=== PATIENT | female | born 1930 | race Caucasian/White ===

== ENCOUNTER → 2016-10-28 | Outpatient (CLI) | payer OTHER ==
[2016-10-28 14:01] LABS: ALT/SGPT 35 U/L (12-78); AST/SGOT 24 U/L (15-37); BLOOD UREA NITROGEN 19 mg/dl (7-18); BUN/CREATININE RATIO 21.5 (10-20); CALCIUM 8.8 mg/dl (8.5-10.1); CARBON DIOXIDE 31 mmol/L (21-32); CHLORIDE 109 mmol/L (98-107); CHOLESTEROL 171 mg/dl (0-200); CHOLESTEROL/HDL RATIO 2.6; CREATININE 0.89 mg/dl (0.60-1.20); GLUCOSE 90 mg/dl (70-99); HDL CHOLESTEROL 65 mg/dl; LDL CHOLESTEROL CALCULATED 86 mg/dl; POTASSIUM 4.3 mmol/L (3.5-5.1); SODIUM 142 mmol/L (136-145); TRIGLYCERIDES 102 mg/dl (0-150); VERY LOW DENSITY LIPOPROT CALC 20 mg/dl
== END | disposition home or self-care (01) ==
LOC: C.LABMFLN 08:15
PROVIDERS: ATTEND Family Medicine
DX: E78.00 Pure hypercholesterolemia, unspecified (principal); I10 Essential (primary) hypertension; M81.0 Age-related osteoporosis without current pathological fracture

== ENCOUNTER → 2017-04-25 | Outpatient (CLI) | payer OTHER ==
[2017-04-25 18:05] LABS: BASO % 0.3 %; BASO ABS # 0.02 K/uL (0-0.2); EOS % 1.7 %; HEMATOCRIT 40.6 % (37-47); HEMOGLOBIN 13.3 g/dL (12.0-16.0); IG# 0.01 K/uL (0.00-0.02); LYMPH % 31.4 %; LYMPH ABS # 1.83 K/uL (1.2-3.4); MEAN CELL VOLUME 94.6 fL (80-100); MEAN CORPUSCULAR HGB CONC 32.8 g/dl (32-36); MEAN PLATELET VOLUME 12.4 fL (7.4-10.4); MONO % 8.9 %; MONO ABS # 0.52 K/uL (0.11-0.59); NEUT % 57.5 %; NEUT ABS # 3.34 K/uL (1.4-6.5); PLATELET COUNT 176 K/uL (130-400); RED CELL DISTRIBUTION WIDTH CV 13.4 % (11.5-14.5); RED CELL DISTRIBUTION WIDTH SD 45.9 fL (36.4-46.3); WHITE BLOOD COUNT 5.82 K/uL (4.8-10.8)
== END | disposition home or self-care (01) ==
LOC: C.LABMFLN 11:01
PROVIDERS: ATTEND Family Medicine
DX: R06.09 Other forms of dyspnea (principal)

== ENCOUNTER → 2017-06-06 | Outpatient (CLI) | payer OTHER ==
--- NOTE | 2017-06-06 15:11 | EXERCISE STRESS ECHO ---
*NOTICE TO RECEIVING DEMOCRAT AGENCY This information is strictly Confidential and protected under [place] law. [place] law prohibits you from making any further disclosure of this information unless further disclosure is expressly permitted by the written consent of the person to whom it pertains or is authorized by law. A general authorization for the release of medical or other information is not sufficient for this purpose. Hospital accepts no responsibility if the information is made available to any other person, INCLUDING THE PATIENT. Interpretation Summary * Name: LUCAS ALVARADO Study Date: 06/06/2017 09:40 AM BP: 134/76 mmHg * Patient Location: [facility] HR: 57 * : 1930 (M/d/yyyy) Gender: Female Height: 60 in * Age: 87 yrs Ethnicity: [place] Weight: 115 lb * Ordering Physician: Amaury Diego * Referring Physician: Amaury Diego * Performed By: Clarita Jenkins RCS * * Reason For Study: Dyspnea * BSA: 1.5 m2 * -- Conclusions -- * Left ventricular systolic function is normal. * Mild to moderate aortic regurgitation. * There is moderate mitral regurgitation. * Right ventricular systolic pressure is elevated at 30-40mmHg. * Poor exercise tolerance * No evidence of ischemia at the workload achieved Procedure Details * ECHOEX, CPT #[id number] * ECHO COLOR FLOW, CPT #[id number] * ECHO DOPPLER, CPT #[id number] Left Ventricular Findings with Stress * Poor exercise tolerance No evidence of ischemia at the workload achieved Left Ventricle * The left ventricle is grossly normal size. * There is normal left ventricular wall thickness. * Ejection Fraction = 55-60%. * Left ventricular systolic function is normal. * The left ventricular wall motion is normal at rest. Right Ventricle * The right ventricle is normal in size and function. * The right ventricular systolic function is normal as assessed by tricuspid annular plane systolic excursion (TAPSE) (normal >1.5 cm). Atria * The left atrial size is normal. * Right atrial size is normal. Mitral Valve * The mitral valve is grossly normal. * There is moderate mitral regurgitation. Tricuspid Valve * The tricuspid valve is not well visualized, but is grossly normal. * There is mild tricuspid regurgitation. * Right ventricular systolic pressure is elevated at 30-40mmHg. Aortic Valve * Aortic valve sclerosis mild, without significant aortic valvular stenosis. * No hemodynamically significant valvular aortic stenosis. * Mild to moderate aortic regurgitation. Great Vessels * The aortic root is normal size. Pericardium * There is no pericardial effusion. Stress Parameters * Normal baseline electrocardiogram. * There was some minor ST segment flattening during exercise * Rest heart rate was '57' BPM. * Rest blood pressure was '134/76' * Maximum heart rate achieved was 116 bpm. * Maximum heart rate was 85 % of maximum age-predicted heart rate. * Maximum blood pressure was '168/46' * Total exercise time was '36:28' * Maximum exercise MET level achieved was '5.1' METS * Maximum treadmill speed was '2.5' miles per hour. * Maximum treadmill elevation was '12'% grade. * Exercise was terminated due to 'fatigue and shortness of breath' * Normal blood pressure response to exercise. Left Ventricular Findings with Stress * Baseline EKG was normal There was some minor ST segment depressions and flattening during exercise which resolved in recovery Baseline echocardiographic images are normal There was normal augmentation of all segments without development of wall motion abnormalities Poor exercise tolerance Normal heart rate and blood pressure response to exercise Byrnes treadmill score:3 (moderate risk) MMode 2D Measurements and Calculations IVSd 0.98 cm IVSs 1.2 cm LVIDd 4.1 cm LVIDs 2.9 cm LVPWd 0.92 cm LVPWs 1.2 cm IVS/LVPW 1.1 FS 29.0 % EDV(Teich) 73.2 ml ESV(Teich) 32.0 ml EF(Teich) 56.3 % EDV(cubed) 67.7 ml ESV(cubed) 24.2 ml EF(cubed) 64.3 % % IVS thick 24.4 % % LVPW thick 29.5 % LV mass(C)d 122.0 grams LV mass(C)dI 82.7 grams/m\S\2 LV mass(C)s 104.8 grams LV mass(C)sI 71.0 grams/m\S\2 SV(Teich) 41.2 ml SI(Teich) 27.9 ml/m\S\2 SV(cubed) 43.5 ml SI(cubed) 29.5 ml/m\S\2 Ao root diam 2.9 cm Ao root area 6.7 cm\S\2 LA dimension 3.1 cm asc Aorta Diam 2.2 cm LA/Ao 1.1 LVOT diam 1.9 cm LVOT area 3.0 cm\S\2 EDV(MOD-sp4) 61.0 ml ESV(MOD-sp4) 30.0 ml EF(MOD-sp4) 50.8 % EDV(MOD-sp2) 61.0 ml ESV(MOD-sp2) 23.0 ml EF(MOD-sp2) 62.3 % SV(MOD-sp4) 31.0 ml SI(MOD-sp4) 21.0 ml/m\S\2 SV(MOD-sp2) 38.0 ml SI(MOD-sp2) 25.8 ml/m\S\2 Doppler Measurements and Calculations MV E max beverley 90.6 cm/sec MV A max beverley 77.6 cm/sec MV E/A 1.2 MV P1/2t max beverley 112.2 cm/sec MV P1/2t 46.8 msec MVA(P1/2t) 4.7 cm\S\2 MV dec slope 702.3 cm/sec\S\2 MV dec time 0.21 sec Ao V2 max 236.8 cm/sec Ao max PG 22.4 mmHg Ao max PG (full) 20.1 mmHg Ao V2 mean 158.3 cm/sec Ao mean PG 11.6 mmHg Ao mean PG (full) 10.3 mmHg Ao V2 VTI 63.8 cm HODA(I,A) 0.91 cm\S\2 HDOA(I,D) 0.91 cm\S\2 HODA(V,A) 0.96 cm\S\2 HODA(V,D) 0.96 cm\S\2 AI max beverley 371.3 cm/sec AI max PG 55.2 mmHg AI dec slope 177.6 cm/sec\S\2 AI P1/2t 612.5 msec LV V1 max PG 2.3 mmHg LV V1 mean PG 1.2 mmHg LV V1 max 76.4 cm/sec LV V1 mean 50.5 cm/sec LV V1 VTI 19.4 cm SV(Ao) 427.6 ml SI(Ao) 289.8 ml/m\S\2 SV(LVOT) 57.8 ml SI(LVOT) 39.2 ml/m\S\2 PA V2 max 82.7 cm/sec PA max PG 2.9 mmHg PI max beverley 187.9 cm/sec PI max PG 14.3 mmHg PI dec slope 184.6 cm/sec\S\2 PI P1/2t 298.1 msec TR max beverley 254.9 cm/sec
== END | disposition home or self-care (01) ==
LOC: C.CPL 09:34
PROVIDERS: ATTEND Family Medicine
DX: R06.09 Other forms of dyspnea (principal)

== ENCOUNTER → 2017-11-05 | Outpatient (CLI) | payer OTHER ==
[2017-11-05 13:19] LABS: ALT/SGPT 27 U/L (12-78); AST/SGOT 24 U/L (15-37); BLOOD UREA NITROGEN 19 mg/dl (7-18); CALCIUM 8.8 mg/dl (8.5-10.1); CARBON DIOXIDE 28 mmol/L (21-32); CHOLESTEROL 155 mg/dl (0-200); CREATININE 0.86 mg/dl (0.60-1.20); GLUCOSE 91 mg/dl (70-99); LDL CHOLESTEROL CALCULATED 72 mg/dl; POTASSIUM 4.1 mmol/L (3.5-5.1); SODIUM 141 mmol/L (136-145)
== END | disposition home or self-care (01) ==
LOC: C.LABMFLN 07:29
PROVIDERS: ATTEND Family Medicine
DX: E78.00 Pure hypercholesterolemia, unspecified (principal); I10 Essential (primary) hypertension; M81.0 Age-related osteoporosis without current pathological fracture